=== PATIENT | female | born 1990 | race Caucasian/White ===

== ENCOUNTER 2019-08-04 16:11 | Emergency (ER) | payer SELFPAY ==
[~2019-08-04] VITALS: Ht 165 cm; Wt 100.0 kg
[2019-08-04] MEDS ORDERED: ONDANSETRON 4 MG (ZOFRAN) ORAL DISSOLVE TAB PO ONE (16:30)
--- NOTE | 2019-08-04 16:32 | ED GI ---
General Chief Complaint: Abdominal/GI Problems Stated Complaint: NAUSEA Source of Information: Patient Exam Limitations: No Limitations History of Present Illness Date Seen by Provider: Aug 04, 2019 Time Seen by Provider: 16:30 Initial Comments To ER with nausea intermittently for one week as well as intermittent suprapubic abdominal discomfort for one week. Timing/Duration: 1 Week Severity/Quality: Cramping Location: Generalized Abdomen Radiation: No Radiation Activities at Onset: None Associated Symptoms: Nausea/Vomiting Allergies and Home Medications Allergies Coded Allergies: No Known Drug Allergies (Unverified , 08/04/19) Patient Home Medication List Home Medication List Reviewed: Yes Review of Systems Review of Systems Constitutional: see HPI; No fever EENTM: No Symptoms Reported Respiratory: No Symptoms Reported Cardiovascular: No Symptoms Reported Gastrointestinal: See HPI, Abdominal Pain; Denies Constipated, Denies Diarrhea; Nausea Genitourinary: No Symptoms Reported; Denies Burning, Denies Discharge, Denies Drainage, Denies Frequency, Denies Flank Pain, Denies Hematuria Musculoskeletal: no symptoms reported Skin: no symptoms reported Psychiatric/Neurological: No Symptoms Reported Endocrine: No Symptoms Reported Hematologic/Lymphatic: No Symptoms Reported (primary) Past Bdhqxbe-Hrzmre-Niewbq Hx Patient Social History Recent Foreign Travel: No Contact w/Someone Who Travel: No Physical Exam Vital Signs Vital Signs - First Documented 08/04/19 16:29 Pulse 93 Resp 14 B/P (MAP) 136/100 (112) Pulse Ox 98 O2 Delivery Room Air Capillary Refill : Height/Weight/BMI Height: '" Weight: lbs. oz. kg; BMI Method: General Appearance: WD/WN, no apparent distress HEENT: PERRL/EOMI, normal ENT inspection Neck: non-tender, full range of motion Respiratory: no respiratory distress, no accessory muscle use Cardiovascular: regular rate, rhythm, no murmur Gastrointestinal: normal bowel sounds, non tender, soft Extremities: normal range of motion, non-tender Neurologic/Psychiatric: alert, normal mood/affect, oriented x 3 Skin: normal color, warm/dry Progress/Results/Core Measures Results/Orders Lab Results Laboratory Tests Test 08/04/19 16:25 Range/Units Urine Color YELLOW Urine Clarity CLEAR Urine pH 6.5 5-9 Urine Specific [place] 1.010 L 1.016-1.022 Urine Protein NEGATIVE NEGATIVE Urine Glucose (UA) NEGATIVE NEGATIVE Urine Ketones NEGATIVE NEGATIVE Urine Nitrite NEGATIVE NEGATIVE Urine Bilirubin NEGATIVE NEGATIVE Urine Urobilinogen 0.2 < = 1.0 MG/DL Urine Leukocyte Esterase NEGATIVE NEGATIVE Urine RBC (Auto) NEGATIVE NEGATIVE Urine RBC NONE /HPF Urine WBC NONE /HPF Urine Squamous Epithelial Cells 10-25 H /HPF Urine Crystals NONE /LPF Urine Bacteria FEW H /HPF Urine Casts NONE /LPF Urine Mucus NEGATIVE /LPF Urine Culture Indicated NO My Orders Orders - INOCENCIO MAST APRN Ondansetron Oral Dissolve Tab (Zofran (08/04/19 16:30) Medications Given in ED Current Medications Medications Dose Ordered Sig/Kari Route Start Time Stop Time Status Last Admin Dose Admin Ondansetron HCl 8 mg ONCE ONCE PO 08/04/19 16:30 08/04/19 16:31 DC 08/04/19 16:39 8 MG Vital Signs/I&O 08/04/19 16:29 Pulse 93 Resp 14 B/P (MAP) 136/100 (112) Pulse Ox 98 O2 Delivery Room Air Departure Impression Primary Impression: Nausea alone Disposition: HOME, SELF-CARE Condition: Improved Departure-Patient Inst. Decision time for Depature: 16:51 Referrals: NINA HARTMAN HOLLY R MD NO,LOCAL PHYSICIAN (PCP) Primary Care Physician LAURA BLANKENSHIP MD, JULIE A MD Patient Instructions: Nausea and Vomiting, Adult Add. Discharge Instructions: 1. Follow-up with your regular doctor this week for recheck. If you do not have a physician and a list has been provided for you. Nausea medication as needed. Return to ER for any EMERGENCIES All discharge instructions reviewed with patient and/or family. Voiced understanding. Scripts Ondansetron (Ondansetron Odt) 8 Mg Tab.rapdis 8 MG PO Q6H PRN for NAUSEA/VOMITING-1ST LINE, #14 TAB Prov: INOCENCIO MAST APRN 08/04/19 INOCENCIO MAST APRN Aug 04, 2019 16:32
[2019-08-04 16:34] LABS: BILIRUBIN,URINE NEGATIVE (NEGATIVE); CLARITY,URINE CLEAR; COLOR,URINE YELLOW; GLUCOSE, URINE (UA) NEGATIVE (NEGATIVE); KETONES,URINE NEGATIVE (NEGATIVE); LEUKOCYTE ESTERASE ,URINE NEGATIVE (NEGATIVE); NITRITE,URINE NEGATIVE (NEGATIVE); PH,URINE 6.5 (5-9); PROTEIN,URINE NEGATIVE (NEGATIVE)
[2019-08-04 16:42] LABS: BACTERIA,URINE FEW /HPF
[2019-08-04] MEDS ORDERED: ONDA8TAB13 PO (17:05)
[2019-08-04 17:07] VITALS: BP 136/100
== END 2019-08-04 17:15 | disposition home or self-care (01) ==
LOC: EDUNIT# 16:11 → ER 16:12
DX: R11.0 Nausea (principal)
CPT/HCPCS: 81000; 84703; 99283

== ENCOUNTER 2020-02-13 13:16 | Emergency (ER) | payer SELFPAY ==
[~2020-02-13] VITALS: Ht 65 cm; Wt 95.0 kg
[~2020-02-13 13:16] MED LIST: ONDA8TAB13 PO
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
--- OUTSIDE RECORDS SUMMARY | 2020-02-13 13:21 | XMS REPORT ---
Author Author Ede Johnston Doctor Organization [facility] Address Unknown Phone Unavailable Care Team Providers Care Brick Layer Name Role Phone Migration, Doctor Unavailable Unavailable PROBLEMS Type Condition ICD9-CM Code [id number] Code Onset Dates Condition S tatus SNOMED Code Problem Face, neck, and scalp, excep t eye, abrasion or friction burn, without mention of infection 910.0 Active 1340666 05 Problem Other abnormal glucose 790.29 Active 252026362 Problem General counseling for prescription of oral contraceptives V25.01 Active [id number] Problem examination or test, negative result V72.41 Active 276798981 Problem DTAP TEST V06.1 Active ALLERGIES No Information ENCOUNTERS Encounter Location Date Diagnosis [facility] [address] [facility] [id number] [address] [place] [address] Nov, [facility] [address] [facility] [id number] [address] [place] [phone] Nov, [facility] [address] [facility] [id number] [address] [place] [address] Apr, [facility] [address] [facility] [id number] [address] [place] [address] Apr, [facility] [address] [facility] [id number] [address] [place] [phone] Feb, [facility] [address] [facility] [id number] [address] [place] [phone] Jan, [facility] [address] [facility] [id number] [address] [place] [address] Jan, [facility] [address] [facility] [id number] [address] [place] [address] December, [facility] [address] [facility] [id number] [address] [place] [phone] Nov, [facility] [address] [id number] [address] [place] [address], [place] [address] 16 Nov, 2012 [facility] [address] [id number] [address] [place] [address], [place] [address] 14 Nov, 2012 [facility] [address] [id number] [address] [place] [address], [place] [address] 10 Nov, 2012 [facility] [address] [id number] [address] [place] [address], [place] [address] Oct, [facility] [address] [id number] [address] [place] [address], [place] [address] Aug, [facility] [address] [id number] [address] [place] [address], [place] [address] Jun, [facility] [address] [id number] [address] [place] [address], [place] [address] Jun, [facility] [address] [id number] [address] [place] [address], [place] [address] Jun, [facility] [address] [id number] [address] [place] [address], [place] [address] Jan, [facility] [address] [id number] [address] [place] [address], [place] [address] Jan, [facility] [address] [id number] [address] [place] [address], [place] [address] Jan, [facility] [address] [id number] [address] [place] [address], [place] [address] December, [facility] [address] [id number] [address] [place] [address], [place] [address] Sep, [facility] [address] [id number] [address] [place] [address], [place] [address] Jul, [facility] [address] [id number] [address] [place] [address], [place] [address] Jul, [facility] [address] [id number] [address] [place] [phone] 28 Jul, 2011 [facility] [address] [id number] [address] [place] [address] 18 May, 2011 [facility] [address] [id number] [address] [place] [address] 15 Jul, 2010 [facility] [address] [id number] [address] [place] [address] 15 Jul, 2010 [facility] [address] [id number] [address] [place] [address] 06 Jul, 2010 [facility] [address] [id number] [address] [place] [address] 16 Jun, 2010 [facility] [address] [id number] [address] [place] [address] 16 Jun, 2010 [facility] [address] [id number] [address] [place] [address] December, [facility] [address] [id number] [address] [place] [address] 15 Jul, 2009 [facility] [address] [id number] [address] [place] [address] Jul, [facility] [address] [id number] [address] [place] [address] Jun, [facility] [address] [id number] [address] [place] [address] December, [facility] [address] [id number] [address] [place] [address] May, IMMUNIZATIONS No Known Immunizations SOCIAL HISTORY Never Assessed REASON FOR VISIT PLAN OF CARE VITAL SIGNS MEDICATIONS Unknown Medications RESULTS No Results PROCEDURES No Known procedures INSTRUCTIONS MEDICATIONS ADMINISTERED No Known Medications
--- OUTSIDE RECORDS SUMMARY | 2020-02-13 13:21 | XMS REPORT ---
Author Author Ede Johnston Doctor Organization [facility] Address Unknown Phone Unavailable Care Team Providers Care Head Cager Name Role Phone Migration, Doctor Unavailable Unavailable PROBLEMS Type Condition ICD9-CM Code [id number] Code Onset Dates Condition S tatus SNOMED Code Problem Face, neck, and scalp, excep t eye, abrasion or friction burn, without mention of infection 910.0 Active 0765796 05 Problem Other abnormal glucose 790.29 Active 832036545 Problem General counseling for prescription of oral contraceptives V25.01 Active 941510002655330 Problem examination or test, negative result V72.41 Active 393876719 Problem DTAP TEST V06.1 Active ALLERGIES No Information ENCOUNTERS Encounter Location Date Diagnosis [facility] [address] [facility] [id number] [address] [place] [address] Nov, [facility] [address] [facility] [id number] [address] [place] [address] Nov, [facility] [address] [facility] [id number] [address] [place] [address] Apr, [facility] [address] [facility] [id number] [address] [place] [phone] Apr, [facility] [address] [facility] [id number] [address] [place] [address] Feb, [facility] [address] [facility] [id number] [address] [place] [address] Jan, [facility] [address] [facility] [id number] [address] [place] [address] Jan, [facility] [address] [facility] [id number] [address] [place] [address] December, [facility] [address] [facility] [id number] [address] [place] [address] Nov, [facility] [address] [id number] [address] [place] [address], [place] [address] 16 Nov, 2012 [facility] [address] [id number] [address] [place] [address], [place] [address] 14 Nov, 2012 [facility] [address] [id number] [address] [place] [address], [place] [address] 10 Nov, 2012 [facility] [address] [id number] [address] [place] [address], [place] [address] Oct, [facility] [address] [id number] [address] [place] [address], [place] [address] Aug, [facility] [address] [id number] [address] [place] [address], [place] [address] Jun, [facility] [address] [id number] [address] [place] [address], [place] [address] Jun, [facility] [address] [id number] [address] [place] [address], [place] [address] Jun, [facility] [address] [id number] [address] [place] [address], [place] [address] Jan, [facility] [address] [id number] [address] [place] [address], [place] [address] Jan, [facility] [address] [id number] [address] [place] [address], [place] [address] Jan, [facility] [address] [id number] [address] [place] [address], [place] [address] December, [facility] [address] [id number] [address] [place] [address], [place] [address] Sep, [facility] [address] [id number] [address] [place] [address], [place] [address] Jul, [facility] [address] [id number] [address] [place] [address], [place] [address] Jul, [facility] [address] [id number] [address] [place] [address] 28 Jul, 2011 [facility] [address] [id number] [address] [place] [address] 18 May, 2011 [facility] [address] [id number] [address] [place] [address] 15 Jul, 2010 [facility] [address] [id number] [address] [place] [address] 15 Jul, 2010 [facility] [address] [id number] [address] [place] [address] 06 Jul, 2010 [facility] [address] [id number] [address] [place] [address] 16 Jun, 2010 [facility] [address] [id number] [address] [place] [address] 16 Jun, 2010 [facility] [address] [id number] [address] [place] [address] December, [facility] [address] [id number] [address] [place] [address] 15 Jul, 2009 [facility] [address] [id number] [address] [place] [address] Jul, [facility] [address] [id number] [address] [place] [address] Jun, [facility] [address] [id number] [address] [place] [address] December, [facility] [address] [id number] [address] [place] [address] May, IMMUNIZATIONS No Known Immunizations SOCIAL HISTORY Never Assessed REASON FOR VISIT PLAN OF CARE VITAL SIGNS MEDICATIONS Unknown Medications RESULTS No Results PROCEDURES No Known procedures INSTRUCTIONS MEDICATIONS ADMINISTERED No Known Medications
--- NOTE | 2020-02-13 14:23 | ED GU-Female ---
General Chief Complaint: Female Reproductive Stated Complaint: VAG BLEEDING X 3 WKS Nursing Triage Note: has had vaginal bleeding for 3 weeks. Intermittent pain on the right side. No pain now. Has not had a pap smear since she was 20 years old and they told her she has cysts Nursing Sepsis Screen: No Definite Risk Source: patient Exam Limitations: no limitations History of Present Illness Date Seen by Provider: Feb 13, 2020 Time Seen by Provider: 14:20 Initial Comments To ER with vaginal bleeding for 3 weeks. It's been irregular for about 6 months but consistently bleeding for 3 weeks. Intermittent right lower quadrant pain, none currently. No discharge. The intensity of bleeding waxes and wanes. She was passing several clots yesterday. She has never seen anyone for this. Timing/Duration: just prior to arrival Severity/Quality: moderate Location: RLQ Radiation: none Activities at Onset: none Prior Genitourinary Problems: none Associated Symptoms: No fever/chills, No nausea/vomiting Allergies and Home Medications Allergies Coded Allergies: No Known Drug Allergies (Unverified , 08/04/19) Home Medications Ondansetron 8 Mg Tab.rapdis, 8 MG PO Q6H PRN for NAUSEA/VOMITING-1ST LINE Prescribed by: INOCENCIO MAST on 08/04/19 5124 Patient Home Medication List Home Medication List Reviewed: Yes Review of Systems Review of Systems Constitutional: see HPI; No chills, No fever EENTM: see HPI Respiratory: no symptoms reported Gastrointestinal: abdominal pain Genitourinary: no symptoms reported Musculoskeletal: no symptoms reported Skin: no symptoms reported Psychiatric/Neurological: No Symptoms Reported Endocrine: No Symptoms Reported Past Dddrrin-Afeyzy-Priqmn Hx Patient Social History Alcohol Use: Occasionally Uses Recreational Drug Use: Yes Drug of Choice: THC Smoking Status: Current Everyday Smoker Recent Foreign Travel: No Contact w/Someone Who Travel: No Recent Infectious Disease Expo: No Recent Hopitalizations: No Seasonal Allergies Seasonal Allergies: No Past Medical History Surgeries: Yes (dental, tubes) Adenoidectomy, Orthopedic Respiratory: No Cardiac: No Neurological: No : No Genitourinary: No Gastrointestinal: No Musculoskeletal: No Endocrine: No HEENT: No Cancer: No Psychosocial: No Blood Disorders: No Physical Exam Vital Signs Vital Signs - First Documented 02/13/20 13:16 Temp 37.1 Pulse 111 Resp 20 B/P (MAP) 157/102 (120) Pulse Ox 99 O2 Delivery Room Air Capillary Refill : Less Than 3 Seconds Height, Weight, BMI Height: '" Weight: lbs. oz. kg; 224.00 BMI Method: General Appearance: WD/WN, no apparent distress HEENT: PERRL/EOMI, normal ENT inspection Respiratory: no respiratory distress, no accessory muscle use Gastrointestinal: normal bowel sounds, non tender, soft Pelvic: other (pelvic exam done with Lillie, patient healthcare science specialist at the bedside. An unremarkable pelvic exam, cervix has normal appearance with a small clot in the cervical os, no cervical motion tenderness) Extremities: normal range of motion, non-tender Neurologic/Psychiatric: alert, normal mood/affect, oriented x 3 Skin: normal color, warm/dry Progress/Results/Core Measures Suspected Sepsis Recent Fever Within 48 Hours: No Infection Criteria Present: None New/Unexplained Altered Menta: No Sepsis Screen: No Definite Risk SIRS Temperature: Pulse: 111 Respiratory Rate: 20 Laboratory Tests 02/13/20 14:35: White Blood Count 16.2H Blood Pressure 157 /102 Mean: 120 Laboratory Tests 02/13/20 14:35: Platelet Count 260 Results/Orders Lab Results Laboratory Tests Test 02/13/20 14:15 02/13/20 14:35 02/13/20 15:15 Range/Units White Blood Count 16.2 H 4.3-11.0 10^3/uL Red Blood Count 3.08 L 4.35-5.85 10^6/uL Hemoglobin 10.1 L 11.5-16.0 G/DL Hematocrit 29 L 35-52 % Mean Corpuscular Volume 96 80-99 FL Mean Corpuscular Hemoglobin 33 25-34 PG Mean Corpuscular Hemoglobin Concent 34 32-36 G/DL Red Cell Distribution Width 12.6 10.0-14.5 % Platelet Count 260 130-400 10^3/uL Mean Platelet Volume 9.9 7.4-10.4 FL Neutrophils (%) (Auto) 86 H 42-75 % Lymphocytes (%) (Auto) 8 L 12-44 % Monocytes (%) (Auto) 6 0-12 % Eosinophils (%) (Auto) 0 0-10 % Basophils (%) (Auto) 0 0-10 % Neutrophils # (Auto) 13.9 H 1.8-7.8 X 10^3 Lymphocytes # (Auto) 1.3 1.0-4.0 X 10^3 Monocytes # (Auto) 1.0 0.0-1.0 X 10^3 Eosinophils # (Auto) 0.0 0.0-0.3 10^3/uL Basophils # (Auto) 0.0 0.0-0.1 10^3/uL Neutrophils % (Manual) 90 % Lymphocytes % (Manual) 3 % Monocytes % (Manual) 2 % Band Neutrophils 2 % Blood Morphology Comment NORMAL Serum Test, Qualitative NEGATIVE NEGATIVE Urine Color YELLOW Urine Clarity CLEAR Urine pH 8.0 5-9 Urine Specific [place] 1.010 L 1.016-1.022 Urine Protein NEGATIVE NEGATIVE Urine Glucose (UA) NEGATIVE NEGATIVE Urine Ketones NEGATIVE NEGATIVE Urine Nitrite NEGATIVE NEGATIVE Urine Bilirubin NEGATIVE NEGATIVE Urine Urobilinogen 0.2 < = 1.0 MG/DL Urine Leukocyte Esterase NEGATIVE NEGATIVE Urine RBC (Auto) 3+ H NEGATIVE Urine RBC RARE /HPF Urine WBC NONE /HPF Urine Squamous Epithelial Cells RARE /HPF Urine Crystals NONE /LPF Urine Bacteria TRACE /HPF Urine Casts NONE /LPF Urine Mucus NEGATIVE /LPF Urine Culture Indicated NO Micro Results Microbiology 02/13/20 Genital Culture, Resulted Pending 02/13/20 Wet Prep - Final, Resulted My Orders Orders - INOCENCIO MAST APRN Cbc With Automated Diff (02/13/20 14:07) Hcg,Qualitative Serum (02/13/20 14:07) Ua Culture If Indicated (02/13/20 14:07) Wet Prep (02/13/20 14:07) Neisseria Gonorrhea Swab (02/13/20 14:07) Genital Culture (02/13/20 14:07) Chlamydia Trachomatis Swab (02/13/20 14:07) Manual Differential (02/13/20 14:35) Ct Abdomen/Pelvis Wo (02/13/20 15:11) Vital Signs/I&O 02/13/20 13:16 Temp 37.1 Pulse 111 Resp 20 B/P (MAP) 157/102 (120) Pulse Ox 99 O2 Delivery Room Air Capillary Refill : Less Than 3 Seconds Blood Pressure Mean: 120 Diagnostic Imaging Diagonstic Imaging: CT Comments NAME: CANDIS KING MED REC#: [id number] PT STATUS: REG ER : 1990 PHYSICIAN: INOCENCIO MAST APRN ADMIT DATE: 02/13/20/ER Draft Date of Exam:02/13/20 CT ABDOMEN/PELVIS WO PROCEDURE: CT abdomen and pelvis without contrast. TECHNIQUE: Multiple contiguous axial images were obtained through the abdomen and pelvis without the use of intravenous contrast. Auto Exposure Controls were utilized during the CT exam to meet ALARA standards for radiation dose reduction. INDICATION: Vaginal bleeding for 3 weeks. Passing clots. Pelvic pain. FINDINGS: The liver, gallbladder and bile ducts are normal. The spleen, pancreas and adrenals are normal. The kidneys, ureters and bladder are normal. There is no adnexal mass. The appendix is normal. No acute bowel abnormality is seen. There is no ascites. There is no bony abnormality. IMPRESSION: Normal CT of the abdomen and pelvis. Dictated on workstation # [id number] Dict: 02/13/20 1554 Trans: 02/13/20 1600 PJE [id number] Interpreted by: SOLANGE LOCK MD Electronically signed by: Departure Impression Primary Impression: Vaginal bleeding, abnormal Disposition: 01 HOME, SELF-CARE Condition: Stable Departure-Patient Inst. Decision time for Depature: 14:22 Referrals: KHUSHBU NAVARRETE DENNIS G MD NO,LOCAL PHYSICIAN (PCP) Primary Care Physician ZAC LYNN AARON D ARNP Patient Instructions: IRREGULAR VAGINAL BLEEDING Add. Discharge Instructions: 1. Medication as directed 2. Call 1 wooden frame builder listed tomorrow to make an appointment to be seen as soon as they can see you.Return to er for any fevers, worsening pain or other concerns. All discharge instructions reviewed with patient and/or family. Voiced understanding. Scripts Medroxyprogesterone Acetate (Medroxyprogesterone Acetate) 10 Mg Tablet 10 MG PO DAILY for 7 Days, TAB Prov: INOCENCIO MAST APRN 02/13/20 INOCENCIO MAST APRN Feb 13, 2020 14:23
[2020-02-13 14:46] LABS: BASOPHILS % (AUTO) 0 % (0-10); EOSINOPHILS % (AUTO) 0 % (0-10); HEMATOCRIT 29 % (35-52); HEMOGLOBIN 10.1 G/DL (11.5-16.0); LYMPHOCYTES # (AUTO) 1.3 X 10^3 (1.0-4.0); LYMPHOCYTES % (AUTO) 8 % (12-44); MEAN CORPUSCULAR HEMOGLOBIN 33 PG (25-34); MEAN CORPUSCULAR HGB CONC 34 G/DL (32-36); MEAN CORPUSCULAR VOLUME 96 FL (80-99); MEAN PLATELET VOLUME 9.9 FL (7.4-10.4); MONOCYTES % (AUTO) 6 % (0-12); NEUTROPHILS # (AUTO) 13.9 X 10^3 (1.8-7.8); NEUTROPHILS % (AUTO) 86 % (42-75); PLATELET COUNT 260 10^3/uL (130-400); RED CELL DISTRIBUTION WIDTH 12.6 % (10.0-14.5); WHITE BLOOD COUNT 16.2 10^3/uL (4.3-11.0)
[2020-02-13 15:08] LABS: BAND NEUTROPHILS 2 %; LYMPHOCYTES % (MANUAL) 3 %; MONOCYTES % (MANUAL) 2 %; NEUTROPHILS % (MANUAL) 90 %; RBC MORPH NORMAL
[2020-02-13 15:27] LABS: BILIRUBIN,URINE NEGATIVE (NEGATIVE); CLARITY,URINE CLEAR; COLOR,URINE YELLOW; GLUCOSE, URINE (UA) NEGATIVE (NEGATIVE); KETONES,URINE NEGATIVE (NEGATIVE); LEUKOCYTE ESTERASE ,URINE NEGATIVE (NEGATIVE); NITRITE,URINE NEGATIVE (NEGATIVE); PROTEIN,URINE NEGATIVE (NEGATIVE)
[2020-02-13 15:47] LABS: BACTERIA,URINE TRACE /HPF; RBC,URINE RARE /HPF; SQUAMOUS EPITHELIAL CELL,UR RARE /HPF
--- NOTE | 2020-02-13 16:01 | Diagnostic Imaging Report ---
PROCEDURE: CT abdomen and pelvis without contrast. TECHNIQUE: Multiple contiguous axial images were obtained through the abdomen and pelvis without the use of intravenous contrast. Auto Exposure Controls were utilized during the CT exam to meet ALARA standards for radiation dose reduction. INDICATION: Vaginal bleeding for 3 weeks. Passing clots. Pelvic pain. FINDINGS: The liver, gallbladder and bile ducts are normal. The spleen, pancreas and adrenals are normal. The kidneys, ureters and bladder are normal. There is no adnexal mass. The appendix is normal. No acute bowel abnormality is seen. There is no ascites. There is no bony abnormality. IMPRESSION: Normal CT of the abdomen and pelvis. Dictated by: Dictated on workstation # [id number]
[2020-02-13] MEDS ORDERED: MEDR10TA9 PO (16:05)
[2020-02-13 16:08] VITALS: BP 137/68
== END 2020-02-13 16:08 | disposition home or self-care (01) ==
LOC: EDUNIT# 13:16 → ER 13:17
DX: N93.9 Abnormal uterine and vaginal bleeding, unspecified (principal)
CPT/HCPCS: 36415; 74176; 81000; 84703; 85007; 85027; 87070; 87077; 87186; 87205; 87210; 87491; 87591; 99284

== ENCOUNTER 2020-02-23 22:27 | Emergency (ER) | payer SELFPAY ==
[~2020-02-23] VITALS: Ht 165 cm; Wt 95.1 kg
[~2020-02-23 22:27] MED LIST changes: +MEDR10TA9 PO
[2020-02-23] MEDS ORDERED: FAMOTIDINE 20 MG (PEPCID) TABLET PO STA (22:34)
[2020-02-23] MEDS ORDERED: BIRTH CONTROL (22:37)
[2020-02-23] MEDS ORDERED: IRON18TA PO (22:37)
[2020-02-23 22:44] LABS: BILIRUBIN,URINE NEGATIVE (NEGATIVE); CLARITY,URINE CLEAR; COLOR,URINE YELLOW; GLUCOSE, URINE (UA) NEGATIVE (NEGATIVE); KETONES,URINE NEGATIVE (NEGATIVE); LEUKOCYTE ESTERASE ,URINE NEGATIVE (NEGATIVE); NITRITE,URINE NEGATIVE (NEGATIVE); PROTEIN,URINE NEGATIVE (NEGATIVE)
[2020-02-23] MEDS ORDERED: LIDOCAINE 2% VISCOUS 15 ML UDC PO ONE (22:45)
[2020-02-23] MEDS ORDERED: ONDANSETRON 4 MG (ZOFRAN) ORAL DISSOLVE TAB PO ONE (22:45)
[2020-02-23] MEDS ORDERED: ANTACID SUSP 30 ML UDC (MYLANTA) PO ONE (22:45)
[2020-02-23 22:49] LABS: BACTERIA,URINE TRACE /HPF; WBC,URINE RARE /HPF
--- NOTE | 2020-02-23 22:53 | ED Abdominal Pain ---
General Chief Complaint: Abdominal/GI Problems Stated Complaint: RLQ PAIN, N/V, BACK PAIN Nursing Triage Note: BACK,ABDOMINAL PAIN, NAUSEA Sepsis Screen: No Definite Risk Source of Information: Patient Exam Limitations: No Limitations History of Present Illness Date Seen by Provider: Feb 23, 2020 Time Seen by Provider: 22:30 Initial Comments Patient presents ER by private conveyance from home with chief complaint of pressure and discomfort in her right flank and right upper quadrant abdomen. She says is worse with sitting up for a long time. Been going on for about 3 or 4 days. She's having no dysuria vomiting diarrhea constipation. Had a normal bowel movement earlier this morning. She has nausea off and on. She has not taken any Tylenol or ibuprofen because she states that it would not help anyways. She does not have any fever chills cough shortness of breath. She has no primary care doctor. 10 days ago she was here for 3 weeks of vaginal bleeding which has been irregular for the past 6 months. She had a normal vaginal exam except for a small blood clot at the cervical os. She had a normal CT of the abdomen and pelvis without IV contrast. She had a modest white count of 16,000 at that time. She was sent home to follow-up with Dr. NAVARRETE. She's had no abdominal surgeries. Allergies and Home Medications Allergies Coded Allergies: No Known Drug Allergies (Unverified , 08/04/19) Patient Home Medication List Home Medication List Reviewed: Yes Review of Systems Review of Systems Constitutional: No chills, No fever EENTM: No Blurred Vision, No Double Vision Respiratory: Denies Cough, Denies Shortness of Air Cardiovascular: Denies Chest Pain, Denies Lightheadedness Gastrointestinal: Denies Constipated, Denies Diarrhea; Nausea; Denies Vomiting Genitourinary: Denies Burning, Denies Discharge Musculoskeletal: No back pain, No joint pain Skin: No pruritus, No rash All Other Systems Reviewed Negative Unless Noted: Yes Past Xsecheb-Idolzv-Robhju Hx Patient Social History Alcohol Use: Rarely Uses Recreational Drug Use: Yes Drug of Choice: CANNIBUS Smoking Status: Current Everyday Smoker Type Used: Cigarettes Recent Foreign Travel: No Contact w/Someone Who Travel: No Recent Infectious Disease Expo: No Recent Hopitalizations: No Immunizations Up To Date Tetanus Booster (TDap): Unknown Seasonal Allergies Seasonal Allergies: No Past Medical History Surgeries: Yes (dental, tubes) Adenoidectomy, Orthopedic Respiratory: No Cardiac: No Neurological: No : No Genitourinary: No Gastrointestinal: No Musculoskeletal: No Endocrine: No HEENT: No Cancer: No Psychosocial: Yes Suicide Attempts, Bipolar, Depression Integumentary: No Blood Disorders: Yes (ANEMIA) Physical Exam Vital Signs Vital Signs - First Documented 02/23/20 22:30 Temp 37.4 Pulse 122 Resp 18 B/P (MAP) 158/92 (114) Pulse Ox 100 O2 Delivery Room Air Capillary Refill : Less Than 3 Seconds Height/Weight/BMI Height: '" Weight: lbs. oz. kg; 34.00 BMI Method: General Appearance: WD/WN, mild distress HEENT: PERRL/EOMI, pharynx normal Respiratory: lungs clear, normal breath sounds, no respiratory distress, no accessory muscle use Cardiovascular: normal peripheral pulses, regular rate, rhythm Peripheral Pulses: 2+ Radial Pulses (R), 2+ Radial Pulses (L) Gastrointestinal: normal bowel sounds, non tender, soft, other (negative for Yoon sign, McBurney's point tenderness or psoas sign.) Extremities: normal range of motion, normal inspection, normal capillary refill Neurologic/Psychiatric: alert, normal mood/affect, oriented x 3 Skin: normal color, warm/dry Progress/Results/Core Measures Results/Orders Lab Results Laboratory Tests Test 02/23/20 22:35 02/23/20 22:49 Range/Units Urine Color YELLOW Urine Clarity CLEAR Urine pH 7.0 5-9 Urine Specific [place] 1.010 L 1.016-1.022 Urine Protein NEGATIVE NEGATIVE Urine Glucose (UA) NEGATIVE NEGATIVE Urine Ketones NEGATIVE NEGATIVE Urine Nitrite NEGATIVE NEGATIVE Urine Bilirubin NEGATIVE NEGATIVE Urine Urobilinogen 0.2 < = 1.0 MG/DL Urine Leukocyte Esterase NEGATIVE NEGATIVE Urine RBC (Auto) NEGATIVE NEGATIVE Urine RBC NONE /HPF Urine WBC RARE /HPF Urine Squamous Epithelial Cells 2-5 /HPF Urine Crystals NONE /LPF Urine Bacteria TRACE /HPF Urine Casts NONE /LPF Urine Mucus SMALL H /LPF Urine Culture Indicated NO White Blood Count 9.5 4.3-11.0 10^3/uL Red Blood Count 3.21 L 4.35-5.85 10^6/uL Hemoglobin 10.4 L 11.5-16.0 G/DL Hematocrit 31 L 35-52 % Mean Corpuscular Volume 98 80-99 FL Mean Corpuscular Hemoglobin 32 25-34 PG Mean Corpuscular Hemoglobin Concent 33 32-36 G/DL Red Cell Distribution Width 12.8 10.0-14.5 % Platelet Count 375 130-400 10^3/uL Mean Platelet Volume 9.6 7.4-10.4 FL Neutrophils (%) (Auto) 75 42-75 % Lymphocytes (%) (Auto) 16 12-44 % Monocytes (%) (Auto) 8 0-12 % Eosinophils (%) (Auto) 0 0-10 % Basophils (%) (Auto) 0 0-10 % Neutrophils # (Auto) 7.2 1.8-7.8 X 10^3 Lymphocytes # (Auto) 1.5 1.0-4.0 X 10^3 Monocytes # (Auto) 0.8 0.0-1.0 X 10^3 Eosinophils # (Auto) 0.0 0.0-0.3 10^3/uL Basophils # (Auto) 0.0 0.0-0.1 10^3/uL Sodium Level 140 135-145 MMOL/L Potassium Level 3.9 3.6-5.0 MMOL/L Chloride Level 110 H 98-107 MMOL/L Carbon Dioxide Level 19 L 21-32 MMOL/L Anion Gap 11 5-14 MMOL/L Blood Urea Nitrogen 7 7-18 MG/DL Creatinine 0.78 0.60-1.30 MG/DL Estimat Glomerular Filtration Rate > 60 BUN/Creatinine Ratio 9 Glucose Level 112 H 70-105 MG/DL Calcium Level 8.6 8.5-10.1 MG/DL Corrected Calcium 8.5-10.1 MG/DL Total Bilirubin 0.2 0.1-1.0 MG/DL Aspartate Amino Transf (AST/SGOT) 13 5-34 U/L Alanine Aminotransferase (ALT/SGPT) 14 0-55 U/L Alkaline Phosphatase 77 40-136 U/L C-Reactive Protein High Sensitivity 0.36 0.00-0.50 MG/DL Total Protein 7.4 6.4-8.2 GM/DL Albumin 4.6 H 3.2-4.5 GM/DL My Orders Orders - JERILYN CHEATHAM Lidocaine 2% Viscous 15 Ml (Xylocaine Vi (02/23/20 22:45) Famotidine Tablet (Pepcid Tablet) (02/23/20 22:34) Antacid Suspension (Mylanta Suspension (02/23/20 22:45) Ondansetron Oral Dissolve Tab (Zofran (02/23/20 22:45) Cbc With Automated Diff (02/23/20 22:34) Comprehensive Metabolic Panel (02/23/20 22:34) Hs C Reactive Protein (02/23/20 22:34) Ua Culture If Indicated (02/23/20 22:34) Urine Bedside (02/23/20 22:53) Medications Given in ED Current Medications Medications Dose Ordered Sig/Kari Route Start Time Stop Time Status Last Admin Dose Admin Al Hydrox/Mg Hydrox/Simethicone 30 ml ONCE ONCE PO 02/23/20 22:45 02/23/20 22:46 DC 02/23/20 22:45 30 ML Lidocaine HCl 15 ml ONCE ONCE PO 02/23/20 22:45 02/23/20 22:46 DC 02/23/20 22:45 15 ML Ondansetron HCl 4 mg ONCE ONCE PO 02/23/20 22:45 02/23/20 22:46 DC 02/23/20 22:45 4 MG Vital Signs/I&O 02/23/20 22:30 Temp 37.4 Pulse 122 Resp 18 B/P (MAP) 158/92 (114) Pulse Ox 100 O2 Delivery Room Air Blood Pressure Mean: 114 Progress Progress Note #1: Time: 22:56 Progress Note Start with a GI cocktail and get some labs including lipase urinalysis and a bedside . She does not have an acute abdomen. She does have some tachycardia but we'll see what that does after the examiner leaves the room. Progress Note #2: Time: 23:21 Progress Note Heart rate is in the low 90s at rest when the ones in the room. Plan to give her something for her pain before she leaves. Patient is in agreement with this plan to follow up at [facility] and [place]. She now reveals that she did see somebody [facility] and they were going to set her up for an ultrasound outpatient. Departure Impression Primary Impression: Abdominal wall pain Disposition: 01 HOME, SELF-CARE Condition: Stable Departure-Patient Inst. Decision time for Depature: 23:26 Referrals: NO,LOCAL PHYSICIAN (PCP/Family) Primary Care Physician Patient Instructions: Acetaminophen Add. Discharge Instructions: Make a follow-up appointment with [facility] and work on getting the ultrasound scheduled. Tylenol 1000 mg every 8 hours as necessary for pain. Ibuprofen 800 mg every 8 hours as necessary for pain. Return to the ER for intractable pain, vomiting or fever above 100.4. Ondansetron one tablet every 6 hours as necessary for nausea. All discharge instructions reviewed with patient and/or family. Voiced understanding. Scripts Ondansetron (Ondansetron Odt) 4 Mg Tab.rapdis 4 MG PO Q6H PRN for NAUSEA-1ST LINE, #10 TAB 0 Refills Prov: JERILYN CHEATHAM 02/23/20 JERILYN CHEATHAM Feb 23, 2020 22:53
[2020-02-23 22:54] LABS: BASOPHILS % (AUTO) 0 % (0-10); EOSINOPHILS % (AUTO) 0 % (0-10); HEMATOCRIT 31 % (35-52); HEMOGLOBIN 10.4 G/DL (11.5-16.0); LYMPHOCYTES # (AUTO) 1.5 X 10^3 (1.0-4.0); LYMPHOCYTES % (AUTO) 16 % (12-44); MEAN CORPUSCULAR HEMOGLOBIN 32 PG (25-34); MEAN CORPUSCULAR HGB CONC 33 G/DL (32-36); MEAN CORPUSCULAR VOLUME 98 FL (80-99); MEAN PLATELET VOLUME 9.6 FL (7.4-10.4); MONOCYTES # (AUTO) 0.8 X 10^3 (0.0-1.0); MONOCYTES % (AUTO) 8 % (0-12); NEUTROPHILS # (AUTO) 7.2 X 10^3 (1.8-7.8); NEUTROPHILS % (AUTO) 75 % (42-75); PLATELET COUNT 375 10^3/uL (130-400); RED CELL DISTRIBUTION WIDTH 12.8 % (10.0-14.5); WHITE BLOOD COUNT 9.5 10^3/uL (4.3-11.0)
[2020-02-23 23:14] LABS: ALANINE AMINOTRANSFERASE 14 U/L (0-55); ALBUMIN 4.6 GM/DL (3.2-4.5); ALKALINE PHOSPHATASE 77 U/L (40-136); BILIRUBIN,TOTAL 0.2 MG/DL (0.1-1.0); BUN/CREATININE RATIO 9; CALCIUM 8.6 MG/DL (8.5-10.1); CARBON DIOXIDE 19 MMOL/L (21-32); CHLORIDE 110 MMOL/L (98-107); CREATININE SERUM 0.78 MG/DL (0.60-1.30); GFR ESTIMATED > 60; GLUCOSE 112 MG/DL (70-105); POTASSIUM 3.9 MMOL/L (3.6-5.0); SODIUM 140 MMOL/L (135-145); TOTAL PROTEIN 7.4 GM/DL (6.4-8.2)
[2020-02-23] MEDS ORDERED: ONDA4TAB11 PO (23:30)
[2020-02-23] MEDS ORDERED: ACETAMINOPHEN 500 MG TAB (TYLENOL) PO ONE (23:30)
[2020-02-23 23:45] VITALS: BP 144/89
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
== END 2020-02-23 23:46 | disposition home or self-care (01) ==
LOC: EDUNIT# 22:27 → ER 22:28
DX: R10.11 Right upper quadrant pain (principal); F17.210 Nicotine dependence, cigarettes, uncomplicated
CPT/HCPCS: 36415; 80053; 81000; 84703; 85025; 86141